=== PATIENT | female | born 1955 | race Caucasian/White ===

== ENCOUNTER 2019-06-07 17:52 | Inpatient (IN) | payer OTHER, MEDICAID ==
[~2019-06-07] VITALS: Ht 162.6 cm; Wt 51.3 kg
[~2019-06-07 17:52] MED LIST: AMIT50TA3 PO; CARB200T8 PO; CLON0.5T12 PO; CYCL10TA9 PO; DIPH-179 PO; ELMIRON PO; ELUX75TA PO; ESOM40CA PO; GABA600T PO; HYDR-4100 PO; LEVE500T53 PO; LEVO25TA7 PO; LORA1TAB PO; MECL-110 PO; METH1TAB35 PO; ONDA4TAB5 PO; PROP10TA10 PO; SOLI10TA2 PO; TEMA30CA5 PO
[2019-06-07 18:14] VITALS: BP_SYST 115
[2019-06-07] MEDS ORDERED: NACL 0.9% 1,000 ML IV ONE (18:15)
[2019-06-07 18:33] LABS: BASOPHILS % (AUTO) 0.2 % (0.0-2.0); HEMATOCRIT 39.7 % (36-48); HEMOGLOBIN 12.9 g/dL (12.0-16.0); LYMPHOCYTES # (AUTO) 0.3 K/uL (1.0-5.5); LYMPHOCYTES % (AUTO) 2.8 % (20.5-51.5); MEAN CORPUSCULAR HEMOGLOBIN 31 pg (27-31); MEAN CORPUSCULAR HGB CONC 33 % (32-36); MEAN CORPUSCULAR VOLUME 96 fL (79.0-98.0); MONOCYTES # (AUTO) 0.8 K/uL (0.0-1.0); PLATELET COUNT (AUTO) 106 K/uL (130-430); RED BLOOD CELL COUNT(AUTO) 4.16 MIL/uL (4.2-6.2); RED CELL DISTRIBUTION WIDTH 14.5 % (9.0-15.0)
[2019-06-07 18:45] LABS: CALCIUM 8.2 mg/dL (8.4-11.0); CREATININE 0.82 mg/dL (0.55-1.30)
[2019-06-07 18:51] LABS: ALBUMIN 2.5 g/dL (3.4-4.8); TOTAL BILIRUBIN 0.5 mg/dL (0.0-1.0)
[2019-06-07 18:56] LABS: INR 1.5 (0.8-1.2); PROTHROMBIN TIME 15.2 SECS (9.5-12.5)
[2019-06-07 19:11] LABS: BLOOD, URINE 3+ (NEGATIVE); GLUCOSE,URINE NEGATIVE (NEGATIVE); KETONES,URINE TRACE (NEGATIVE); LEUKOCYTE ESTERASE ,URINE NEGATIVE (NEGATIVE); PH,URINE 6.5 (5.0-8.0); PROTEIN URINE 2+ (NEGATIVE)
[2019-06-07] MEDS ORDERED: ENOXAPARIN SODIUM 30 MG/0.3 ML SYRINGE SUBCUT ONE (19:15)
[2019-06-07 19:24] LABS: BILIRUBIN,URINE NEGATIVE (NEGATIVE); CLARITY/URINE HAZY (CLEAR); COLOR,URINE AMBER (YELLOW); NITRITE, URINE NEGATIVE (NEGATIVE)
[2019-06-07 19:25] LABS: BACTERIA,URINE FEW /HPF (None Seen); MUCUS,URINE None Seen /LPF (None Seen); RBC,URINE NONE SEEN /HPF (0-3); WBC,URINE 0-3 /HPF (0-3)
[2019-06-07] MEDS ORDERED: BACL10TA PO (21:19)
[2019-06-07] MEDS ORDERED: PRIM50TA27 PO ×2 (21:22→21:23)
[2019-06-07] MEDS ORDERED: NITR-85 PO (21:25)
[2019-06-07] MEDS ORDERED: ACET1TAB25 PO (21:26)
[2019-06-07] MEDS ORDERED: LEVO750T45 PO (21:28)
[2019-06-07] MEDS ORDERED: ENOXAPARIN SODIUM 40 MG/0.4 ML SYRINGE SUBCUT ONE (22:00)
[2019-06-07] MEDS ORDERED: KCL 20 mEq in D5/0.45NS 1000mL 1,000 ML IV ONE (22:15)
[2019-06-07] MEDS: KCL 20 mEq in D5/0.45NS 1000mL 1,000 ML IV SCH (23:30)
[2019-06-07] MEDS ORDERED: AZITHROMYCIN 500 MG in NS 250 ML IV SCH (23:30)
[2019-06-07 23:40] VITALS: BP_SYST 117
[2019-06-07 23:48] VITALS: BP_SYST 101
[2019-06-07 23:52] LABS: CKMB RELATIVE INDEX 1.3 (0.0-2.9); CREATINE KINASE MB 42.1 ng/mL (0-3.6)
[2019-06-08] MEDS ORDERED: levETIRAcetam 500 MG TABLET PO SCH ×2 (01:10→09:00)
[2019-06-08] MEDS: LevALBUTEROL HCL 1.25 MG/0.5 ML *CONC.* VIAL.NEB (XOPENEX CONC.) INH SCH ×4 (01:27→23:20)
[2019-06-08] MEDS ORDERED: CYCLOBENZAPRINE HCL 10 MG TABLET (FLEXERIL) PO SCH ×2 (01:30→09:00)
[2019-06-08] MEDS ORDERED: PRIMIDONE 50 MG TABLET PO SCH ×2 (01:30→09:00)
[2019-06-08] MEDS ORDERED: BACLOFEN 10 MG TABLET PO SCH ×3 (01:30→09:00)
[2019-06-08] MEDS ORDERED: GABAPENTIN 300 MG CAPSULE PO SCH (01:30)
[2019-06-08] MEDS ORDERED: AZITHROMYCIN 500 MG/VIAL (ZITHROMAX) IV ONE (02:55)
[2019-06-08] MEDS ORDERED: cefTRIAXone 1 GM IVPB PREMIX 50 ML IV ONE (02:55)
[2019-06-08] MEDS ORDERED: KCL 20 mEq in D5/0.45NS 1000mL 1,000 ML IV ONE (02:55)
[2019-06-08] MEDS: cefTRIAXone 1 GM in D5W 50 ML IV SCH (04:09)
[2019-06-08] MEDS ORDERED: LEVOTHYROXINE SODIUM 0.025 MG TABLET PO SCH (07:00)
[2019-06-08] MEDS: GABAPENTIN 300 MG CAPSULE PO SCH ×2 (07:05→14:00)
[2019-06-08 07:07] LABS: BASOPHILS % (AUTO) 0.1 % (0.0-2.0); HEMATOCRIT 37.9 % (36-48); HEMOGLOBIN 12.2 g/dL (12.0-16.0); LYMPHOCYTES # (AUTO) 0.4 K/uL (1.0-5.5); LYMPHOCYTES % (AUTO) 3.9 % (20.5-51.5); MEAN CORPUSCULAR HEMOGLOBIN 31 pg (27-31); MEAN CORPUSCULAR HGB CONC 32 % (32-36); MEAN CORPUSCULAR VOLUME 97 fL (79.0-98.0); MONOCYTES # (AUTO) 0.9 K/uL (0.0-1.0); MONOCYTES % (AUTO) 8.7 % (1.7-9.3); NEUTROPHILS # (AUTO) 8.8 K/uL (1.8-7.7); NEUTROPHILS % (AUTO) 87.3 % (40.0-70.0); PLATELET COUNT (AUTO) 104 K/uL (130-430); RED BLOOD CELL COUNT(AUTO) 3.93 MIL/uL (4.2-6.2); RED CELL DISTRIBUTION WIDTH 14.1 % (9.0-15.0); WHITE BLOOD COUNT (AUTO) 10.1 K/uL (4.8-10.8)
[2019-06-08 07:27] LABS: CALCIUM 7.9 mg/dL (8.4-11.0); CREATININE 0.59 mg/dL (0.55-1.30); POTASSIUM 4.3 mmol/L (3.5-5.1)
[2019-06-08 07:53] VITALS: BP_SYST 110
[2019-06-08] MEDS ORDERED: clonazePAM 0.5 MG TABLET PO SCH (09:00)
[2019-06-08] MEDS: ENOXAPARIN SODIUM 40 MG/0.4 ML SYRINGE SUBCUT SCH (12:22)
[2019-06-08 12:26] VITALS: BP_SYST 115
[2019-06-08] MEDS: KCL 20 mEq in D5/0.45NS 1000mL 1,000 ML IV SCH (12:27)
[2019-06-08] MEDS ORDERED: COMMUNICATION ORDER XX ONE (14:45)
[2019-06-08] MEDS ORDERED: levETIRAcetam 500 MG in NS 100 ML IV ONE (15:30)
[2019-06-08 16:28] VITALS: BP_SYST 144
[2019-06-08] MEDS ORDERED: ACETAMINOPHEN 650 MG SUPP.RECT RC PRN (16:30)
[2019-06-08] MEDS: MORPHINE 2 MG/ML INJ. SYRINGE IVP PRN (16:40)
[2019-06-08 20:00] VITALS: BP_SYST 124
[2019-06-08] MEDS: metroNIDAZOLE 500 mg/NS 100 ML IV SCH (22:09)
[2019-06-08] MEDS: levETIRAcetam 500 MG in NS 100 ML IV SCH (22:10)
[2019-06-08 23:46] VITALS: BP_SYST 120
[2019-06-09] MEDS: cefTRIAXone 1 GM in D5W 50 ML IV SCH (00:33)
[2019-06-09] MEDS ORDERED: cefTRIAXone 1 GM VIAL ONE (00:39)
[2019-06-09] MEDS: LevALBUTEROL HCL 1.25 MG/0.5 ML *CONC.* VIAL.NEB (XOPENEX CONC.) INH SCH ×4 (00:46→19:08)
[2019-06-09 06:42] LABS: BASOPHILS % (AUTO) 0.1 % (0.0-2.0); HEMATOCRIT 35.2 % (36-48); HEMOGLOBIN 11.3 g/dL (12.0-16.0); LYMPHOCYTES # (AUTO) 0.4 K/uL (1.0-5.5); LYMPHOCYTES % (AUTO) 3.6 % (20.5-51.5); MEAN CORPUSCULAR HEMOGLOBIN 31 pg (27-31); MEAN CORPUSCULAR HGB CONC 32 % (32-36); MEAN CORPUSCULAR VOLUME 96 fL (79.0-98.0); MONOCYTES # (AUTO) 0.8 K/uL (0.0-1.0); MONOCYTES % (AUTO) 6.6 % (1.7-9.3); NEUTROPHILS # (AUTO) 10.8 K/uL (1.8-7.7); NEUTROPHILS % (AUTO) 89.7 % (40.0-70.0); PLATELET COUNT (AUTO) 90 K/uL (130-430); RED BLOOD CELL COUNT(AUTO) 3.66 MIL/uL (4.2-6.2); RED CELL DISTRIBUTION WIDTH 14.5 % (9.0-15.0)
[2019-06-09 07:11] LABS: ALBUMIN 2.1 g/dL (3.4-4.8); CALCIUM 7.6 mg/dL (8.4-11.0); CREATININE 0.46 mg/dL (0.55-1.30); POTASSIUM 4.2 mmol/L (3.5-5.1); THYROID STIMULATING HORMONE 0.85 uIu/mL (0.36-3.74); TOTAL BILIRUBIN 0.4 mg/dL (0.0-1.0)
[2019-06-09] MEDS: levETIRAcetam 500 MG in NS 100 ML IV SCH ×2 (09:01→19:59)
[2019-06-09] MEDS: KCL 20 mEq in D5/0.45NS 1000mL 1,000 ML IV SCH ×3 (09:01→13:30)
[2019-06-09 09:05] VITALS: BP_SYST 124
[2019-06-09] MEDS: metroNIDAZOLE 500 mg/NS 100 ML IV SCH ×2 (10:22→19:59)
[2019-06-09] MEDS: ENOXAPARIN SODIUM 40 MG/0.4 ML SYRINGE SUBCUT SCH (10:24)
[2019-06-09] MEDS: LEVOTHYROXINE SODIUM 0.1 MG VIAL IVP SCH (10:38)
[2019-06-09] MEDS: MORPHINE 2 MG/ML INJ. SYRINGE IVP PRN ×2 (11:53→20:00)
[2019-06-09 12:00] VITALS: BP_SYST 137
[2019-06-09 15:35] VITALS: BP_SYST 160
[2019-06-09 16:32] VITALS: BP_SYST 138
[2019-06-09 20:00] VITALS: BP_SYST 148
[2019-06-09] MEDS: ONDANSETRON HCL 4 MG/2 ML VIAL IVP PRN (22:51)
[2019-06-10 00:06] VITALS: BP_SYST 130
[2019-06-10] MEDS: cefTRIAXone 1 GM in D5W 50 ML IV SCH ×2 (00:26→23:16)
[2019-06-10] MEDS: KCL 20 mEq in D5/0.45NS 1000mL 1,000 ML IV SCH ×3 (00:41→21:59)
[2019-06-10] MEDS: LevALBUTEROL HCL 1.25 MG/0.5 ML *CONC.* VIAL.NEB (XOPENEX CONC.) INH SCH ×3 (01:00→14:06)
[2019-06-10 08:27] VITALS: BP_SYST 130
[2019-06-10] MEDS: levETIRAcetam 500 MG in NS 100 ML IV SCH ×2 (10:56→21:59)
[2019-06-10] MEDS: LEVOTHYROXINE SODIUM 0.1 MG VIAL IVP SCH (10:57)
[2019-06-10] MEDS: metroNIDAZOLE 500 mg/NS 100 ML IV SCH ×2 (10:57→22:00)
[2019-06-10] MEDS: ENOXAPARIN SODIUM 40 MG/0.4 ML SYRINGE SUBCUT SCH (10:58)
[2019-06-10] MEDS ORDERED: BARIUM SULFATE 135 ML SUSP.RECON (E-Z-HD) PO ONE (11:05)
[2019-06-10 12:00] VITALS: BP_SYST 111
[2019-06-10] MEDS ORDERED: FLUCONAZOLE 200 mg/ NS 100 ML IV ONE (12:00)
[2019-06-10] MEDS: MORPHINE 2 MG/ML INJ. SYRINGE IVP PRN (14:46)
[2019-06-10 16:22] VITALS: BP_SYST 135
[2019-06-10 20:00] VITALS: BP_SYST 123
[2019-06-10] MEDS: LORazepam 2 MG/ML VIAL IVP PRN (23:22)
[2019-06-11] VITALS (14 sets, daily range): BP systolic 134–161
[2019-06-11] MEDS: KCL 20 mEq in D5/0.45NS 1000mL 1,000 ML IV SCH ×2 (05:14→17:51)
[2019-06-11 06:16] LABS: BASOPHILS % (AUTO) 0.2 % (0.0-2.0); HEMATOCRIT 34.4 % (36-48); LYMPHOCYTES # (AUTO) 0.4 K/uL (1.0-5.5); LYMPHOCYTES % (AUTO) 2.7 % (20.5-51.5); MEAN CORPUSCULAR HEMOGLOBIN 31 pg (27-31); MEAN CORPUSCULAR HGB CONC 32 % (32-36); MEAN CORPUSCULAR VOLUME 96 fL (79.0-98.0); MONOCYTES # (AUTO) 0.9 K/uL (0.0-1.0); MONOCYTES % (AUTO) 5.1 % (1.7-9.3); NEUTROPHILS # (AUTO) 15.3 K/uL (1.8-7.7); RED BLOOD CELL COUNT(AUTO) 3.58 MIL/uL (4.2-6.2); RED CELL DISTRIBUTION WIDTH 14.6 % (9.0-15.0); WHITE BLOOD COUNT (AUTO) 16.7 K/uL (4.8-10.8)
[2019-06-11 06:29] LABS: CALCIUM 7.9 mg/dL (8.4-11.0); CHLORIDE 112 mmol/L (98-107); CREATININE 0.45 mg/dL (0.55-1.30); GLUCOSE 141 mg/dL (70-99); POTASSIUM 3.9 mmol/L (3.5-5.1); SODIUM SERUM 144 mmol/L (136-145); UREA NITROGEN, BLOOD 18 mg/dL (8-21)
[2019-06-11 06:41] LABS: GFR AFRICAN AMERICAN 180 mL/min (>90)
[2019-06-11 06:43] LABS: ANION GAP < 3 (5-15)
[2019-06-11] MEDS: LevALBUTEROL HCL 1.25 MG/0.5 ML *CONC.* VIAL.NEB (XOPENEX CONC.) INH SCH ×3 (07:00→19:35)
[2019-06-11 07:16] LABS: PLATELET COUNT (AUTO) 85 K/uL (130-430)
[2019-06-11] MEDS: LEVOTHYROXINE SODIUM 0.1 MG VIAL IVP SCH (09:07)
[2019-06-11] MEDS: levETIRAcetam 500 MG in NS 100 ML IV SCH ×2 (09:07→20:05)
[2019-06-11] MEDS: metroNIDAZOLE 500 mg/NS 100 ML IV SCH ×2 (09:10→22:00)
[2019-06-11] MEDS: ENOXAPARIN SODIUM 40 MG/0.4 ML SYRINGE SUBCUT SCH (09:10)
[2019-06-11] MEDS: LevALBUTEROL HCL 1.25 MG/0.5 ML *CONC.* VIAL.NEB (XOPENEX CONC.) INH PRN (11:42)
[2019-06-11] MEDS ORDERED: PANTOPRAZOLE SODIUM 40 MG/VIAL (PROTONIX) IVP ONE (15:45)
[2019-06-11] MEDS: MORPHINE 2 MG/ML INJ. SYRINGE IVP PRN (15:55)
[2019-06-11] MEDS: cefTRIAXone 1 GM in D5W 50 ML IV SCH (23:42)
[2019-06-12] VITALS (29 sets, daily range): BP systolic 95–179
[2019-06-12] MEDS: LevALBUTEROL HCL 1.25 MG/0.5 ML *CONC.* VIAL.NEB (XOPENEX CONC.) INH SCH ×4 (00:49→19:25)
[2019-06-12] MEDS: KCL 20 mEq in D5/0.45NS 1000mL 1,000 ML IV SCH ×3 (01:13→23:56)
[2019-06-12 06:47] LABS: BASOPHILS % (AUTO) 0.1 % (0.0-2.0); HEMATOCRIT 38.1 % (36-48); LYMPHOCYTES # (AUTO) 0.5 K/uL (1.0-5.5); LYMPHOCYTES % (AUTO) 2.6 % (20.5-51.5); MEAN CORPUSCULAR HEMOGLOBIN 30 pg (27-31); MEAN CORPUSCULAR HGB CONC 31 % (32-36); MEAN CORPUSCULAR VOLUME 97 fL (79.0-98.0); MONOCYTES # (AUTO) 0.9 K/uL (0.0-1.0); MONOCYTES % (AUTO) 5.3 % (1.7-9.3); NEUTROPHILS # (AUTO) 16.2 K/uL (1.8-7.7); PLATELET COUNT (AUTO) 106 K/uL (130-430); RED BLOOD CELL COUNT(AUTO) 3.93 MIL/uL (4.2-6.2); RED CELL DISTRIBUTION WIDTH 14.7 % (9.0-15.0); WHITE BLOOD COUNT (AUTO) 17.6 K/uL (4.8-10.8)
[2019-06-12] MEDS ORDERED: fentaNYL CITRATE/PF 100 MCG/2 ML AMP ONE (08:17)
[2019-06-12] MEDS: metroNIDAZOLE 500 mg/NS 100 ML IV SCH (09:04)
[2019-06-12] MEDS: PANTOPRAZOLE SODIUM 40 MG/VIAL (PROTONIX) IVP SCH (09:05)
[2019-06-12] MEDS: levETIRAcetam 500 MG in NS 100 ML IV SCH ×2 (09:05→20:59)
[2019-06-12] MEDS: LEVOTHYROXINE SODIUM 0.1 MG VIAL IVP SCH (09:06)
[2019-06-12] MEDS: MIDAZOLAM HCL 5 MG/5 ML VIAL ONE ×2 (09:12→09:15)
[2019-06-12] MEDS: ENOXAPARIN SODIUM 40 MG/0.4 ML SYRINGE SUBCUT SCH (09:52)
[2019-06-12] MEDS: LORazepam 2 MG/ML VIAL IVP PRN ×3 (10:07→15:04)
[2019-06-12] MEDS ORDERED: MIDAZOLAM HCL 5 MG/5 ML VIAL ONE (12:16)
[2019-06-12] MEDS: MORPHINE 2 MG/ML INJ. SYRINGE IVP PRN ×3 (12:36→21:10)
[2019-06-12] MEDS: PROPOFOL DRIP 100 ML IV PRN (12:50)
[2019-06-12] MEDS: PIPERACILLIN/TAZO 4.5GM/DEX-IS 100 ML IV SCH ×2 (13:02→21:54)
[2019-06-12] MEDS ORDERED: ETOMIDATE 20 MG/ 10 ML VIAL (AMIDATE) IVP ONE (15:03)
[2019-06-12] MEDS ORDERED: *TPN PER PHARMACY XX PRN (20:45)
[2019-06-13] VITALS (33 sets, daily range): BP systolic 80–119
[2019-06-13] MEDS: LevALBUTEROL HCL 1.25 MG/0.5 ML *CONC.* VIAL.NEB (XOPENEX CONC.) INH SCH ×4 (01:40→20:17)
[2019-06-13] MEDS: PIPERACILLIN/TAZO 4.5GM/DEX-IS 100 ML IV SCH ×3 (05:18→22:06)
[2019-06-13] MEDS: PROPOFOL DRIP 100 ML IV PRN ×2 (05:20→15:16)
[2019-06-13 06:56] LABS: ALANINE AMINOTRANSFERASE 20 U/L (12-78); ALBUMIN 1.7 g/dL (3.4-4.8); ASPARTATE AMINOTRANSFERASE 21 U/L (10-37); CALCIUM 7.9 mg/dL (8.4-11.0); CHLORIDE 109 mmol/L (98-107); CREATININE 0.46 mg/dL (0.55-1.30); GLUCOSE 139 mg/dL (70-99); POTASSIUM 3.6 mmol/L (3.5-5.1); SODIUM SERUM 141 mmol/L (136-145); TOTAL BILIRUBIN 0.6 mg/dL (0.0-1.0); UREA NITROGEN, BLOOD 16 mg/dL (8-21)
[2019-06-13 07:00] LABS: BASOPHILS % (AUTO) 0.3 % (0.0-2.0); EOSINOPHILS # (AUTO) 0.1 K/uL (0.0-0.4); EOSINOPHILS % (AUTO) 0.5 % (0.0-4.0); HEMATOCRIT 30.6 % (36-48); HEMOGLOBIN 9.8 g/dL (12.0-16.0); LYMPHOCYTES # (AUTO) 0.5 K/uL (1.0-5.5); LYMPHOCYTES % (AUTO) 4.1 % (20.5-51.5); MEAN CORPUSCULAR HEMOGLOBIN 31 pg (27-31); MEAN CORPUSCULAR HGB CONC 32 % (32-36); MEAN CORPUSCULAR VOLUME 97 fL (79.0-98.0); MONOCYTES # (AUTO) 0.7 K/uL (0.0-1.0); MONOCYTES % (AUTO) 5.5 % (1.7-9.3); NEUTROPHILS # (AUTO) 11.2 K/uL (1.8-7.7); NEUTROPHILS % (AUTO) 89.6 % (40.0-70.0); PLATELET COUNT (AUTO) 77 K/uL (130-430); RED BLOOD CELL COUNT(AUTO) 3.17 MIL/uL (4.2-6.2); RED CELL DISTRIBUTION WIDTH 14.6 % (9.0-15.0); WHITE BLOOD COUNT (AUTO) 12.5 K/uL (4.8-10.8)
[2019-06-13 07:32] LABS: GFR AFRICAN AMERICAN 175 mL/min (>90)
[2019-06-13 07:34] LABS: ANION GAP < 3 (5-15)
[2019-06-13] MEDS: LEVOTHYROXINE SODIUM 0.1 MG VIAL IVP SCH (08:52)
[2019-06-13] MEDS: PANTOPRAZOLE SODIUM 40 MG/VIAL (PROTONIX) IVP SCH (08:52)
[2019-06-13] MEDS: levETIRAcetam 500 MG in NS 100 ML IV SCH ×2 (08:52→20:45)
[2019-06-13] MEDS: ENOXAPARIN SODIUM 40 MG/0.4 ML SYRINGE SUBCUT SCH (08:53)
[2019-06-13] MEDS: KCL 20 mEq in D5/0.45NS 1000mL 1,000 ML IV SCH ×2 (09:16→20:44)
[2019-06-13 10:56] LABS: PHOSPHORUS 1.6 mg/dL (2.7-4.5)
[2019-06-13] MEDS: LORazepam 2 MG/ML VIAL IVP PRN (13:32)
[2019-06-13] MEDS: MORPHINE 2 MG/ML INJ. SYRINGE IVP PRN ×3 (13:34→23:38)
[2019-06-13] MEDS ORDERED: MAGNESIUM SULFATE IV SCH ×7 (21:00)
[2019-06-13] MEDS ORDERED: TPN CENTRAL IV SCH ×7 (21:00)
[2019-06-13] MEDS ORDERED: [UNRECOGNIZED DRUG - OTHER] IV SCH ×7 (21:00)
[2019-06-13] MEDS ORDERED: NA PHOS IV SCH ×7 (21:00)
[2019-06-13] MEDS ORDERED: K PHOS IV SCH ×7 (21:00)
[2019-06-14] VITALS (33 sets, daily range): BP systolic 91–112
[2019-06-14] MEDS ORDERED: D5W 1,000 ML IV PRN ×2 (01:00→04:40)
[2019-06-14] MEDS: INSULIN REGULAR, HUMAN 100 UNITS/ML, 10 ML VIAL (humuLIN R) SUBCUT PRN ×3 (01:00→11:54)
[2019-06-14] MEDS ORDERED: DEXTROSE 50% JECT 50 ML DISP.SYRIN IVP PRN ×2 (01:00→04:45)
[2019-06-14] MEDS ORDERED: GLUCOSE 15 GM GEL (in 37.5 GM TUBE) PO PRN ×2 (01:00→04:45)
[2019-06-14] MEDS: PROPOFOL DRIP 100 ML IV PRN ×3 (01:23→17:25)
[2019-06-14] MEDS: LevALBUTEROL HCL 1.25 MG/0.5 ML *CONC.* VIAL.NEB (XOPENEX CONC.) INH SCH ×4 (01:35→19:54)
[2019-06-14] MEDS: PIPERACILLIN/TAZO 4.5GM/DEX-IS 100 ML IV SCH ×3 (05:53→21:30)
[2019-06-14 06:36] LABS: ALBUMIN 1.7 g/dL (3.4-4.8); CALCIUM 7.6 mg/dL (8.4-11.0); CREATININE 0.33 mg/dL (0.55-1.30); PHOSPHORUS 3.1 mg/dL (2.7-4.5); POTASSIUM 3.8 mmol/L (3.5-5.1); TOTAL BILIRUBIN 0.5 mg/dL (0.0-1.0)
[2019-06-14] MEDS: PANTOPRAZOLE SODIUM 40 MG/VIAL (PROTONIX) IVP SCH (08:17)
[2019-06-14] MEDS: LEVOTHYROXINE SODIUM 0.1 MG VIAL IVP SCH (08:17)
[2019-06-14] MEDS: levETIRAcetam 500 MG in NS 100 ML IV SCH ×2 (08:18→20:52)
[2019-06-14] MEDS: KCL 20 mEq in D5/0.45NS 1000mL 1,000 ML IV SCH ×2 (08:18→17:24)
[2019-06-14] MEDS: ENOXAPARIN SODIUM 40 MG/0.4 ML SYRINGE SUBCUT SCH (08:20)
[2019-06-14] MEDS ORDERED: ETOMIDATE 20 MG/ 10 ML VIAL (AMIDATE) IVP ONE (08:43)
[2019-06-14] MEDS: MORPHINE 2 MG/ML INJ. SYRINGE IVP PRN ×2 (11:55→21:30)
[2019-06-14 17:18] LABS: BASOPHILS % (AUTO) 0.1 % (0.0-2.0); EOSINOPHILS # (AUTO) 0.3 K/uL (0.0-0.4); EOSINOPHILS % (AUTO) 3.2 % (0.0-4.0); HEMATOCRIT 31.4 % (36-48); HEMOGLOBIN 10.1 g/dL (12.0-16.0); LYMPHOCYTES # (AUTO) 0.4 K/uL (1.0-5.5); LYMPHOCYTES % (AUTO) 3.9 % (20.5-51.5); MEAN CORPUSCULAR HEMOGLOBIN 31 pg (27-31); MEAN CORPUSCULAR HGB CONC 32 % (32-36); MEAN CORPUSCULAR VOLUME 96 fL (79.0-98.0); MONOCYTES # (AUTO) 0.4 K/uL (0.0-1.0); MONOCYTES % (AUTO) 3.8 % (1.7-9.3); NEUTROPHILS # (AUTO) 9.6 K/uL (1.8-7.7); RED BLOOD CELL COUNT(AUTO) 3.26 MIL/uL (4.2-6.2); RED CELL DISTRIBUTION WIDTH 14.3 % (9.0-15.0); WHITE BLOOD COUNT (AUTO) 10.8 K/uL (4.8-10.8)
[2019-06-14 17:42] LABS: PLATELET COUNT (AUTO) 88 K/uL (130-430)
[2019-06-14] MEDS ORDERED: FUROSEMIDE 20 MG/2 ML VIAL IVP ONE (20:30)
[2019-06-14] MEDS: 0.45% NACL 1,000 ML IV SCH (20:49)
[2019-06-14] MEDS: ALBUMIN HUMAN 25% 50 ML IV SCH (20:52)
[2019-06-14] MEDS ORDERED: TPN CENTRAL IV SCH ×6 (21:00)
[2019-06-14] MEDS ORDERED: MAGNESIUM SULFATE IV SCH ×6 (21:00)
[2019-06-14] MEDS ORDERED: [UNRECOGNIZED DRUG - OTHER] IV SCH ×6 (21:00)
[2019-06-14] MEDS ORDERED: K PHOS IV SCH ×6 (21:00)
[2019-06-14] MEDS ORDERED: MVI IV SCH ×6 (21:00)
[2019-06-15] VITALS (32 sets, daily range): BP systolic 84–122
[2019-06-15] MEDS: MORPHINE 2 MG/ML INJ. SYRINGE IVP PRN ×3 (00:02→23:32)
[2019-06-15] MEDS: LevALBUTEROL HCL 1.25 MG/0.5 ML *CONC.* VIAL.NEB (XOPENEX CONC.) INH SCH ×4 (01:07→19:00)
[2019-06-15] MEDS: ALBUMIN HUMAN 25% 50 ML IV SCH ×2 (03:09→08:17)
[2019-06-15] MEDS: PROPOFOL DRIP 100 ML IV PRN ×3 (03:11→18:40)
[2019-06-15] MEDS: PIPERACILLIN/TAZO 4.5GM/DEX-IS 100 ML IV SCH ×3 (05:39→22:20)
[2019-06-15 07:16] LABS: BASOPHILS % (AUTO) 0.4 % (0.0-2.0); EOSINOPHILS # (AUTO) 0.4 K/uL (0.0-0.4); EOSINOPHILS % (AUTO) 3.7 % (0.0-4.0); HEMATOCRIT 28.8 % (36-48); HEMOGLOBIN 9.5 g/dL (12.0-16.0); LYMPHOCYTES # (AUTO) 0.5 K/uL (1.0-5.5); LYMPHOCYTES % (AUTO) 4.5 % (20.5-51.5); MEAN CORPUSCULAR HEMOGLOBIN 31 pg (27-31); MEAN CORPUSCULAR HGB CONC 33 % (32-36); MEAN CORPUSCULAR VOLUME 96 fL (79.0-98.0); MONOCYTES # (AUTO) 0.4 K/uL (0.0-1.0); MONOCYTES % (AUTO) 4.3 % (1.7-9.3); NEUTROPHILS # (AUTO) 9.1 K/uL (1.8-7.7); NEUTROPHILS % (AUTO) 87.1 % (40.0-70.0); PLATELET COUNT (AUTO) 92 K/uL (130-430); RED BLOOD CELL COUNT(AUTO) 3.01 MIL/uL (4.2-6.2); RED CELL DISTRIBUTION WIDTH 14.2 % (9.0-15.0); WHITE BLOOD COUNT (AUTO) 10.4 K/uL (4.8-10.8)
[2019-06-15 07:31] LABS: ALBUMIN 1.8 g/dL (3.4-4.8); CALCIUM 7.3 mg/dL (8.4-11.0); CREATININE 0.26 mg/dL (0.55-1.30); PHOSPHORUS 3.5 mg/dL (2.7-4.5); POTASSIUM 3.1 mmol/L (3.5-5.1); TOTAL BILIRUBIN 0.5 mg/dL (0.0-1.0)
[2019-06-15] MEDS ORDERED: KCL 40 mEq in 100 mL (PREMIX) 100 ML IV ONE (08:15)
[2019-06-15] MEDS: PANTOPRAZOLE SODIUM 40 MG/VIAL (PROTONIX) IVP SCH (08:16)
[2019-06-15] MEDS: ENOXAPARIN SODIUM 40 MG/0.4 ML SYRINGE SUBCUT SCH (08:16)
[2019-06-15] MEDS: LEVOTHYROXINE SODIUM 0.1 MG VIAL IVP SCH (08:17)
[2019-06-15] MEDS: levETIRAcetam 500 MG in NS 100 ML IV SCH ×2 (08:17→20:23)
[2019-06-15] MEDS: 0.45% NACL 1,000 ML IV SCH ×2 (14:11→23:33)
[2019-06-15] MEDS ORDERED: CEFAZOLIN 1 GM IVPB PREMIX 50 ML IV ONE (17:00)
[2019-06-15] MEDS ORDERED: MIDAZOLAM HCL 5 MG/5 ML VIAL ONE (17:20)
[2019-06-15] MEDS ORDERED: SIMETHICONE 40 MG/0.6 ML ML ONE (17:20)
[2019-06-15] MEDS ORDERED: fentaNYL CITRATE/PF 100 MCG/2 ML AMP ONE (17:20)
[2019-06-15] MEDS ORDERED: MAGNESIUM SULFATE IV SCH ×8 (21:00)
[2019-06-15] MEDS ORDERED: TPN CENTRAL IV SCH ×8 (21:00)
[2019-06-15] MEDS ORDERED: MVI IV SCH ×8 (21:00)
[2019-06-15] MEDS ORDERED: K PHOS IV SCH ×8 (21:00)
[2019-06-15] MEDS ORDERED: [UNRECOGNIZED DRUG - OTHER] IV SCH ×8 (21:00)
[2019-06-16] VITALS (31 sets, daily range): BP systolic 90–131
[2019-06-16] MEDS: MORPHINE 2 MG/ML INJ. SYRINGE IVP PRN ×3 (02:20→22:20)
[2019-06-16] MEDS: PROPOFOL DRIP 100 ML IV PRN ×3 (02:21→18:02)
[2019-06-16] MEDS: PIPERACILLIN/TAZO 4.5GM/DEX-IS 100 ML IV SCH ×3 (05:35→22:39)
[2019-06-16] MEDS: INSULIN REGULAR, HUMAN 100 UNITS/ML, 10 ML VIAL (humuLIN R) SUBCUT PRN (05:40)
[2019-06-16 06:44] LABS: ALANINE AMINOTRANSFERASE 13 U/L (12-78); ASPARTATE AMINOTRANSFERASE 23 U/L (10-37); CALCIUM 7.8 mg/dL (8.4-11.0); CHLORIDE 99 mmol/L (98-107); CREATININE 0.25 mg/dL (0.55-1.30); GLUCOSE 153 mg/dL (70-99); PHOSPHORUS 3.3 mg/dL (2.7-4.5); POTASSIUM 3.9 mmol/L (3.5-5.1); SODIUM SERUM 133 mmol/L (136-145); TOTAL BILIRUBIN 0.5 mg/dL (0.0-1.0); UREA NITROGEN, BLOOD 11 mg/dL (8-21)
[2019-06-16 07:06] LABS: GFR AFRICAN AMERICAN 354 mL/min (>90)
[2019-06-16 07:07] LABS: ANION GAP < 3 (5-15)
[2019-06-16] MEDS: LevALBUTEROL HCL 1.25 MG/0.5 ML *CONC.* VIAL.NEB (XOPENEX CONC.) INH SCH ×3 (07:50→19:40)
[2019-06-16] MEDS: levETIRAcetam 500 MG in NS 100 ML IV SCH ×2 (08:08→21:16)
[2019-06-16] MEDS: PANTOPRAZOLE SODIUM 40 MG/VIAL (PROTONIX) IVP SCH (08:09)
[2019-06-16] MEDS: ENOXAPARIN SODIUM 40 MG/0.4 ML SYRINGE SUBCUT SCH (08:09)
[2019-06-16] MEDS: LEVOTHYROXINE SODIUM 0.1 MG VIAL IVP SCH (08:09)
[2019-06-16 09:58] LABS: BASOPHILS % (AUTO) 0.3 % (0.0-2.0); EOSINOPHILS # (AUTO) 0.3 K/uL (0.0-0.4); HEMATOCRIT 33.9 % (36-48); HEMOGLOBIN 10.9 g/dL (12.0-16.0); LYMPHOCYTES # (AUTO) 0.7 K/uL (1.0-5.5); LYMPHOCYTES % (AUTO) 6.6 % (20.5-51.5); MEAN CORPUSCULAR HEMOGLOBIN 31 pg (27-31); MEAN CORPUSCULAR HGB CONC 32 % (32-36); MEAN CORPUSCULAR VOLUME 96 fL (79.0-98.0); MONOCYTES # (AUTO) 0.7 K/uL (0.0-1.0); MONOCYTES % (AUTO) 6.8 % (1.7-9.3); NEUTROPHILS # (AUTO) 8.8 K/uL (1.8-7.7); NEUTROPHILS % (AUTO) 83.3 % (40.0-70.0); PLATELET COUNT (AUTO) 105 K/uL (130-430); RED BLOOD CELL COUNT(AUTO) 3.53 MIL/uL (4.2-6.2); RED CELL DISTRIBUTION WIDTH 14.3 % (9.0-15.0); WHITE BLOOD COUNT (AUTO) 10.5 K/uL (4.8-10.8)
[2019-06-16] MEDS: 0.45% NACL 1,000 ML IV SCH (18:42)
[2019-06-16] MEDS ORDERED: K PHOS IV SCH ×9 (21:00)
[2019-06-16] MEDS ORDERED: TPN CENTRAL IV SCH ×9 (21:00)
[2019-06-16] MEDS ORDERED: MAGNESIUM SULFATE IV SCH ×9 (21:00)
[2019-06-16] MEDS ORDERED: MVI IV SCH ×9 (21:00)
[2019-06-16] MEDS ORDERED: [UNRECOGNIZED DRUG - OTHER] IV SCH ×9 (21:00)
[2019-06-16] MEDS: METOCLOPRAMIDE HCL 10 MG/2 ML VIAL IVP SCH (21:16)
[2019-06-17] VITALS (27 sets, daily range): BP systolic 80–127
[2019-06-17] MEDS: PROPOFOL DRIP 100 ML IV PRN ×3 (00:26→14:31)
[2019-06-17] MEDS: LevALBUTEROL HCL 1.25 MG/0.5 ML *CONC.* VIAL.NEB (XOPENEX CONC.) INH SCH ×2 (01:20→19:39)
[2019-06-17] MEDS: PIPERACILLIN/TAZO 4.5GM/DEX-IS 100 ML IV SCH ×3 (05:08→22:08)
[2019-06-17] MEDS: METOCLOPRAMIDE HCL 10 MG/2 ML VIAL IVP SCH ×3 (05:08→22:08)
[2019-06-17] MEDS: MORPHINE 2 MG/ML INJ. SYRINGE IVP PRN ×4 (05:12→22:09)
[2019-06-17] MEDS: INSULIN REGULAR, HUMAN 100 UNITS/ML, 10 ML VIAL (humuLIN R) SUBCUT PRN ×2 (05:15→23:31)
[2019-06-17 06:27] LABS: ALANINE AMINOTRANSFERASE 12 U/L (12-78); ALBUMIN 1.6 g/dL (3.4-4.8); ASPARTATE AMINOTRANSFERASE 35 U/L (10-37); CALCIUM 7.4 mg/dL (8.4-11.0); CHLORIDE 100 mmol/L (98-107); CREATININE 0.31 mg/dL (0.55-1.30); GLUCOSE 174 mg/dL (70-99); PHOSPHORUS 2.6 mg/dL (2.7-4.5); POTASSIUM 3.7 mmol/L (3.5-5.1); SODIUM SERUM 135 mmol/L (136-145); TOTAL BILIRUBIN 0.3 mg/dL (0.0-1.0); UREA NITROGEN, BLOOD 12 mg/dL (8-21)
[2019-06-17 06:42] LABS: ANION GAP < 3 (5-15); GFR AFRICAN AMERICAN 276 mL/min (>90)
[2019-06-17 07:28] LABS: TRIGLYCERIDES 48 mg/dL (30-150)
[2019-06-17] MEDS: PANTOPRAZOLE SODIUM 40 MG/VIAL (PROTONIX) IVP SCH (08:00)
[2019-06-17] MEDS: LEVOTHYROXINE SODIUM 0.1 MG VIAL IVP SCH (08:00)
[2019-06-17] MEDS: levETIRAcetam 500 MG in NS 100 ML IV SCH ×2 (08:00→20:07)
[2019-06-17] MEDS: ENOXAPARIN SODIUM 40 MG/0.4 ML SYRINGE SUBCUT SCH (08:03)
[2019-06-17] MEDS: LORazepam 2 MG/ML VIAL IVP PRN ×3 (11:51→23:27)
[2019-06-17] MEDS: FLUCONAZOLE 100 mg/ NS 50 ML IV SCH (13:12)
[2019-06-18] VITALS (27 sets, daily range): BP systolic 101–147
[2019-06-18] MEDS: LevALBUTEROL HCL 1.25 MG/0.5 ML *CONC.* VIAL.NEB (XOPENEX CONC.) INH SCH ×2 (00:45→19:21)
[2019-06-18] MEDS: 0.45% NACL 1,000 ML IV SCH ×2 (01:30→18:24)
[2019-06-18] MEDS: PIPERACILLIN/TAZO 4.5GM/DEX-IS 100 ML IV SCH ×3 (05:12→21:39)
[2019-06-18] MEDS: METOCLOPRAMIDE HCL 10 MG/2 ML VIAL IVP SCH ×3 (05:13→21:39)
[2019-06-18 05:56] LABS: BASOPHILS # (AUTO) 0.1 K/uL (0.0-0.2); BASOPHILS % (AUTO) 0.6 % (0.0-2.0); EOSINOPHILS # (AUTO) 0.2 K/uL (0.0-0.4); EOSINOPHILS % (AUTO) 2.7 % (0.0-4.0); HEMATOCRIT 29.4 % (36-48); HEMOGLOBIN 9.5 g/dL (12.0-16.0); LYMPHOCYTES # (AUTO) 0.6 K/uL (1.0-5.5); MEAN CORPUSCULAR HEMOGLOBIN 31 pg (27-31); MEAN CORPUSCULAR HGB CONC 32 % (32-36); MEAN CORPUSCULAR VOLUME 96 fL (79.0-98.0); MONOCYTES # (AUTO) 0.7 K/uL (0.0-1.0); MONOCYTES % (AUTO) 8.4 % (1.7-9.3); NEUTROPHILS % (AUTO) 81.3 % (40.0-70.0); PLATELET COUNT (AUTO) 125 K/uL (130-430); RED BLOOD CELL COUNT(AUTO) 3.06 MIL/uL (4.2-6.2); RED CELL DISTRIBUTION WIDTH 14.1 % (9.0-15.0); WHITE BLOOD COUNT (AUTO) 8.6 K/uL (4.8-10.8)
[2019-06-18 06:14] LABS: ALANINE AMINOTRANSFERASE 14 U/L (12-78); ALBUMIN 1.6 g/dL (3.4-4.8); ASPARTATE AMINOTRANSFERASE 22 U/L (10-37); CALCIUM 7.8 mg/dL (8.4-11.0); CHLORIDE 102 mmol/L (98-107); CREATININE 0.41 mg/dL (0.55-1.30); GLUCOSE 135 mg/dL (70-99); POTASSIUM 4.2 mmol/L (3.5-5.1); SODIUM SERUM 138 mmol/L (136-145); TOTAL BILIRUBIN 0.3 mg/dL (0.0-1.0); UREA NITROGEN, BLOOD 13 mg/dL (8-21)
[2019-06-18 06:58] LABS: GFR AFRICAN AMERICAN 200 mL/min (>90)
[2019-06-18 06:59] LABS: ANION GAP < 3 (5-15)
[2019-06-18] MEDS: ENOXAPARIN SODIUM 40 MG/0.4 ML SYRINGE SUBCUT SCH (08:07)
[2019-06-18] MEDS: PANTOPRAZOLE SODIUM 40 MG/VIAL (PROTONIX) IVP SCH (08:07)
[2019-06-18] MEDS: levETIRAcetam 500 MG in NS 100 ML IV SCH ×2 (08:08→20:42)
[2019-06-18] MEDS: LEVOTHYROXINE SODIUM 0.1 MG VIAL IVP SCH (08:08)
[2019-06-18] MEDS: LORazepam 2 MG/ML VIAL IVP PRN ×3 (08:08→21:42)
[2019-06-18] MEDS ORDERED: FUROSEMIDE 20 MG/2 ML VIAL IVP ONE (10:30)
[2019-06-18] MEDS: FLUCONAZOLE 100 mg/ NS 50 ML IV SCH (11:33)
[2019-06-18] MEDS: MORPHINE 2 MG/ML INJ. SYRINGE IVP PRN ×4 (11:34→20:43)
[2019-06-19] VITALS (31 sets, daily range): BP systolic 104–159
[2019-06-19] MEDS: MORPHINE 2 MG/ML INJ. SYRINGE IVP PRN ×5 (00:06→21:05)
[2019-06-19] MEDS: LevALBUTEROL HCL 1.25 MG/0.5 ML *CONC.* VIAL.NEB (XOPENEX CONC.) INH SCH ×4 (00:53→19:36)
[2019-06-19] MEDS: PIPERACILLIN/TAZO 4.5GM/DEX-IS 100 ML IV SCH ×3 (05:27→21:06)
[2019-06-19] MEDS: METOCLOPRAMIDE HCL 10 MG/2 ML VIAL IVP SCH ×3 (05:28→21:05)
[2019-06-19] MEDS: INSULIN REGULAR, HUMAN 100 UNITS/ML, 10 ML VIAL (humuLIN R) SUBCUT PRN (05:31)
[2019-06-19 06:03] LABS: BASOPHILS # (AUTO) 0.1 K/uL (0.0-0.2); BASOPHILS % (AUTO) 0.8 % (0.0-2.0); EOSINOPHILS # (AUTO) 0.2 K/uL (0.0-0.4); EOSINOPHILS % (AUTO) 2.1 % (0.0-4.0); HEMATOCRIT 28.4 % (36-48); HEMOGLOBIN 9.1 g/dL (12.0-16.0); LYMPHOCYTES # (AUTO) 0.7 K/uL (1.0-5.5); LYMPHOCYTES % (AUTO) 8.8 % (20.5-51.5); MEAN CORPUSCULAR HEMOGLOBIN 31 pg (27-31); MEAN CORPUSCULAR HGB CONC 32 % (32-36); MEAN CORPUSCULAR VOLUME 96 fL (79.0-98.0); MONOCYTES # (AUTO) 0.7 K/uL (0.0-1.0); MONOCYTES % (AUTO) 8.4 % (1.7-9.3); NEUTROPHILS # (AUTO) 6.5 K/uL (1.8-7.7); NEUTROPHILS % (AUTO) 79.9 % (40.0-70.0); PLATELET COUNT (AUTO) 123 K/uL (130-430); RED BLOOD CELL COUNT(AUTO) 2.95 MIL/uL (4.2-6.2); RED CELL DISTRIBUTION WIDTH 14.3 % (9.0-15.0); WHITE BLOOD COUNT (AUTO) 8.1 K/uL (4.8-10.8)
[2019-06-19 06:18] LABS: ALANINE AMINOTRANSFERASE 16 U/L (12-78); ALBUMIN 1.7 g/dL (3.4-4.8); ASPARTATE AMINOTRANSFERASE 19 U/L (10-37); CALCIUM 7.5 mg/dL (8.4-11.0); CHLORIDE 101 mmol/L (98-107); CREATININE 0.32 mg/dL (0.55-1.30); GLUCOSE 144 mg/dL (70-99); SODIUM SERUM 140 mmol/L (136-145); TOTAL BILIRUBIN 0.2 mg/dL (0.0-1.0); UREA NITROGEN, BLOOD 12 mg/dL (8-21)
[2019-06-19 07:31] LABS: GFR AFRICAN AMERICAN 267 mL/min (>90)
[2019-06-19 07:32] LABS: ANION GAP < 3 (5-15)
[2019-06-19] MEDS: PANTOPRAZOLE SODIUM 40 MG/VIAL (PROTONIX) IVP SCH (08:21)
[2019-06-19] MEDS: levETIRAcetam 500 MG in NS 100 ML IV SCH ×2 (08:21→21:09)
[2019-06-19] MEDS: LEVOTHYROXINE SODIUM 0.1 MG VIAL IVP SCH (08:22)
[2019-06-19] MEDS: ENOXAPARIN SODIUM 40 MG/0.4 ML SYRINGE SUBCUT SCH (08:33)
[2019-06-19] MEDS: FLUCONAZOLE 100 mg/ NS 50 ML IV SCH (12:13)
[2019-06-19] MEDS: LORazepam 2 MG/ML VIAL IVP PRN ×2 (16:59→22:58)
[2019-06-19] MEDS ORDERED: LevETIRAcetam 500 MG/5 ML UDC ORAL LIQUID GT SCH (21:00)
[2019-06-20] VITALS (32 sets, daily range): BP systolic 106–158
[2019-06-20] MEDS: LevALBUTEROL HCL 1.25 MG/0.5 ML *CONC.* VIAL.NEB (XOPENEX CONC.) INH SCH ×4 (01:26→21:07)
[2019-06-20] MEDS: 0.45% NACL 1,000 ML IV SCH (01:58)
[2019-06-20] MEDS: MORPHINE 2 MG/ML INJ. SYRINGE IVP PRN ×3 (01:58→08:08)
[2019-06-20] MEDS: METOCLOPRAMIDE HCL 10 MG/2 ML VIAL IVP SCH ×3 (05:21→22:05)
[2019-06-20] MEDS: PIPERACILLIN/TAZO 4.5GM/DEX-IS 100 ML IV SCH ×3 (05:22→22:05)
[2019-06-20 05:27] LABS: BASOPHILS % (AUTO) 0.5 % (0.0-2.0); EOSINOPHILS # (AUTO) 0.1 K/uL (0.0-0.4); EOSINOPHILS % (AUTO) 1.7 % (0.0-4.0); HEMATOCRIT 29.2 % (36-48); HEMOGLOBIN 9.3 g/dL (12.0-16.0); LYMPHOCYTES # (AUTO) 0.7 K/uL (1.0-5.5); LYMPHOCYTES % (AUTO) 8.4 % (20.5-51.5); MEAN CORPUSCULAR HEMOGLOBIN 31 pg (27-31); MEAN CORPUSCULAR HGB CONC 32 % (32-36); MEAN CORPUSCULAR VOLUME 97 fL (79.0-98.0); MONOCYTES # (AUTO) 0.7 K/uL (0.0-1.0); MONOCYTES % (AUTO) 8.8 % (1.7-9.3); NEUTROPHILS # (AUTO) 6.7 K/uL (1.8-7.7); NEUTROPHILS % (AUTO) 80.6 % (40.0-70.0); PLATELET COUNT (AUTO) 131 K/uL (130-430); RED CELL DISTRIBUTION WIDTH 14.7 % (9.0-15.0); WHITE BLOOD COUNT (AUTO) 8.3 K/uL (4.8-10.8)
[2019-06-20 05:38] LABS: CALCIUM 7.9 mg/dL (8.4-11.0); CHLORIDE 104 mmol/L (98-107); CREATININE 0.49 mg/dL (0.55-1.30); GLUCOSE 147 mg/dL (70-99); POTASSIUM 3.8 mmol/L (3.5-5.1); SODIUM SERUM 139 mmol/L (136-145); UREA NITROGEN, BLOOD 13 mg/dL (8-21)
[2019-06-20 05:42] LABS: GFR AFRICAN AMERICAN 163 mL/min (>90)
[2019-06-20 05:43] LABS: ANION GAP < 3 (5-15)
[2019-06-20] MEDS: PANTOPRAZOLE SODIUM 40 MG/VIAL (PROTONIX) IVP SCH (08:07)
[2019-06-20] MEDS: levETIRAcetam 500 MG in NS 100 ML IV SCH ×2 (08:09→20:32)
[2019-06-20] MEDS: LEVOTHYROXINE SODIUM 0.1 MG VIAL IVP SCH (08:10)
[2019-06-20] MEDS: ENOXAPARIN SODIUM 40 MG/0.4 ML SYRINGE SUBCUT SCH (08:10)
[2019-06-20] MEDS: FLUCONAZOLE 100 mg/ NS 50 ML IV SCH (11:59)
[2019-06-20] MEDS: LORazepam 2 MG/ML VIAL IVP PRN ×4 (13:07→23:44)
[2019-06-20] MEDS: PRIMIDONE 50 MG TABLET PO SCH (20:33)
[2019-06-21] VITALS (29 sets, daily range): BP systolic 88–156
[2019-06-21] MEDS: 0.45% NACL 1,000 ML IV SCH (00:40)
[2019-06-21] MEDS: LevALBUTEROL HCL 1.25 MG/0.5 ML *CONC.* VIAL.NEB (XOPENEX CONC.) INH SCH ×2 (01:00→19:48)
[2019-06-21] MEDS: LORazepam 2 MG/ML VIAL IVP PRN ×4 (05:17→20:04)
[2019-06-21] MEDS: METOCLOPRAMIDE HCL 10 MG/2 ML VIAL IVP SCH ×3 (05:18→21:57)
[2019-06-21] MEDS: PIPERACILLIN/TAZO 4.5GM/DEX-IS 100 ML IV SCH ×3 (05:18→21:57)
[2019-06-21] MEDS: LEVOTHYROXINE SODIUM 0.1 MG VIAL IVP SCH (09:04)
[2019-06-21] MEDS: levETIRAcetam 500 MG in NS 100 ML IV SCH (09:04)
[2019-06-21] MEDS: PANTOPRAZOLE SODIUM 40 MG/VIAL (PROTONIX) IVP SCH (09:04)
[2019-06-21] MEDS: PRIMIDONE 50 MG TABLET PO SCH ×2 (09:04→20:02)
[2019-06-21] MEDS: ENOXAPARIN SODIUM 40 MG/0.4 ML SYRINGE SUBCUT SCH (09:05)
[2019-06-21] MEDS: MORPHINE 2 MG/ML INJ. SYRINGE IVP PRN ×3 (09:06→17:17)
[2019-06-21] MEDS: FLUCONAZOLE 100 mg/ NS 50 ML IV SCH (12:10)
[2019-06-21] MEDS: GABAPENTIN 300 MG CAPSULE PO SCH (20:02)
[2019-06-21] MEDS: LINEZOLID 300 ML IV SCH (20:02)
[2019-06-21] MEDS: clonazePAM 0.5 MG TABLET GT SCH (20:03)
[2019-06-21] MEDS ORDERED: LevETIRAcetam 500 MG/5 ML UDC ORAL LIQUID GT SCH (21:00)
[2019-06-22] VITALS (30 sets, daily range): BP systolic 83–121
[2019-06-22] MEDS: LevALBUTEROL HCL 1.25 MG/0.5 ML *CONC.* VIAL.NEB (XOPENEX CONC.) INH SCH ×4 (01:01→19:25)
[2019-06-22] MEDS: 0.45% NACL 1,000 ML IV SCH (01:18)
[2019-06-22 05:51] LABS: BASOPHILS # (AUTO) 0.1 K/uL (0.0-0.2); BASOPHILS % (AUTO) 0.9 % (0.0-2.0); EOSINOPHILS # (AUTO) 0.2 K/uL (0.0-0.4); EOSINOPHILS % (AUTO) 3.1 % (0.0-4.0); HEMATOCRIT 27.1 % (36-48); HEMOGLOBIN 8.7 g/dL (12.0-16.0); LYMPHOCYTES # (AUTO) 0.7 K/uL (1.0-5.5); LYMPHOCYTES % (AUTO) 11.5 % (20.5-51.5); MEAN CORPUSCULAR HEMOGLOBIN 31 pg (27-31); MEAN CORPUSCULAR HGB CONC 32 % (32-36); MEAN CORPUSCULAR VOLUME 97 fL (79.0-98.0); MONOCYTES # (AUTO) 0.6 K/uL (0.0-1.0); MONOCYTES % (AUTO) 9.5 % (1.7-9.3); NEUTROPHILS # (AUTO) 4.6 K/uL (1.8-7.7); PLATELET COUNT (AUTO) 134 K/uL (130-430); WHITE BLOOD COUNT (AUTO) 6.2 K/uL (4.8-10.8)
[2019-06-22] MEDS: METOCLOPRAMIDE HCL 10 MG/2 ML VIAL IVP SCH (05:54)
[2019-06-22] MEDS: PIPERACILLIN/TAZO 4.5GM/DEX-IS 100 ML IV SCH ×3 (05:55→22:44)
[2019-06-22] MEDS: LEVOTHYROXINE SODIUM 0.075 MG TABLET PO SCH (06:04)
[2019-06-22 06:13] LABS: ALBUMIN 1.7 g/dL (3.4-4.8); CALCIUM 7.7 mg/dL (8.4-11.0); CREATININE 0.4 mg/dL (0.55-1.30); POTASSIUM 3.4 mmol/L (3.5-5.1); TOTAL BILIRUBIN 0.2 mg/dL (0.0-1.0)
[2019-06-22] MEDS: LINEZOLID 300 ML IV SCH ×2 (08:05→20:35)
[2019-06-22] MEDS: GABAPENTIN 300 MG CAPSULE PO SCH ×3 (08:05→20:34)
[2019-06-22] MEDS: PANTOPRAZOLE SODIUM 40 MG TAB GT SCH (08:06)
[2019-06-22] MEDS: PRIMIDONE 50 MG TABLET PO SCH ×2 (08:06→20:35)
[2019-06-22] MEDS: clonazePAM 0.5 MG TABLET GT SCH ×2 (08:06→20:35)
[2019-06-22] MEDS: ENOXAPARIN SODIUM 40 MG/0.4 ML SYRINGE SUBCUT SCH (08:07)
[2019-06-22] MEDS: MORPHINE 2 MG/ML INJ. SYRINGE IVP PRN ×3 (08:26→20:34)
[2019-06-22] MEDS: NACL 0.9% 1,000 ML IV SCH ×2 (09:15→23:43)
[2019-06-22] MEDS: FLUCONAZOLE 100 mg/ NS 50 ML IV SCH (11:30)
[2019-06-22] MEDS ORDERED: POTASSIUM CHLORIDE 20 MEQ/PKT PACKET PO ONE (13:00)
[2019-06-22] MEDS: LORazepam 2 MG/ML VIAL IVP PRN ×3 (14:01→22:03)
[2019-06-23] VITALS (29 sets, daily range): BP systolic 90–131
[2019-06-23] MEDS: LevALBUTEROL HCL 1.25 MG/0.5 ML *CONC.* VIAL.NEB (XOPENEX CONC.) INH SCH ×4 (02:15→19:57)
[2019-06-23] MEDS: MORPHINE 2 MG/ML INJ. SYRINGE IVP PRN ×3 (05:16→11:35)
[2019-06-23] MEDS: PIPERACILLIN/TAZO 4.5GM/DEX-IS 100 ML IV SCH (05:16)
[2019-06-23 05:59] LABS: BASOPHILS # (AUTO) 0.1 K/uL (0.0-0.2); BASOPHILS % (AUTO) 0.9 % (0.0-2.0); EOSINOPHILS # (AUTO) 0.3 K/uL (0.0-0.4); HEMATOCRIT 27.2 % (36-48); HEMOGLOBIN 8.8 g/dL (12.0-16.0); LYMPHOCYTES # (AUTO) 0.9 K/uL (1.0-5.5); LYMPHOCYTES % (AUTO) 13.5 % (20.5-51.5); MEAN CORPUSCULAR HEMOGLOBIN 31 pg (27-31); MEAN CORPUSCULAR HGB CONC 32 % (32-36); MEAN CORPUSCULAR VOLUME 96 fL (79.0-98.0); MONOCYTES # (AUTO) 0.5 K/uL (0.0-1.0); MONOCYTES % (AUTO) 8.1 % (1.7-9.3); NEUTROPHILS # (AUTO) 4.8 K/uL (1.8-7.7); NEUTROPHILS % (AUTO) 73.5 % (40.0-70.0); PLATELET COUNT (AUTO) 153 K/uL (130-430); RED BLOOD CELL COUNT(AUTO) 2.83 MIL/uL (4.2-6.2); RED CELL DISTRIBUTION WIDTH 14.8 % (9.0-15.0); WHITE BLOOD COUNT (AUTO) 6.6 K/uL (4.8-10.8)
[2019-06-23] MEDS: LEVOTHYROXINE SODIUM 0.075 MG TABLET PO SCH (06:25)
[2019-06-23 06:28] LABS: ALANINE AMINOTRANSFERASE 21 U/L (12-78); ALBUMIN 1.7 g/dL (3.4-4.8); ASPARTATE AMINOTRANSFERASE 23 U/L (10-37); CALCIUM 7.5 mg/dL (8.4-11.0); CHLORIDE 100 mmol/L (98-107); CREATININE 0.37 mg/dL (0.55-1.30); GLUCOSE 113 mg/dL (70-99); SODIUM SERUM 137 mmol/L (136-145); TOTAL BILIRUBIN 0.3 mg/dL (0.0-1.0); UREA NITROGEN, BLOOD 12 mg/dL (8-21)
[2019-06-23 07:17] LABS: ANION GAP < 3 (5-15); GFR AFRICAN AMERICAN 225 mL/min (>90)
[2019-06-23] MEDS: LINEZOLID 300 ML IV SCH ×2 (08:06→21:07)
[2019-06-23] MEDS: LORazepam 2 MG/ML VIAL IVP PRN ×4 (08:07→23:01)
[2019-06-23] MEDS: GABAPENTIN 300 MG CAPSULE PO SCH ×3 (08:07→21:07)
[2019-06-23] MEDS: PANTOPRAZOLE SODIUM 40 MG TAB GT SCH (08:07)
[2019-06-23] MEDS: clonazePAM 0.5 MG TABLET GT SCH ×2 (08:07→21:07)
[2019-06-23] MEDS: ENOXAPARIN SODIUM 40 MG/0.4 ML SYRINGE SUBCUT SCH (08:09)
[2019-06-23] MEDS: PRIMIDONE 50 MG TABLET PO SCH ×2 (08:42→21:07)
[2019-06-23] MEDS: FLUCONAZOLE 100 mg/ NS 50 ML IV SCH (11:35)
[2019-06-23] MEDS: INSULIN REGULAR, HUMAN 100 UNITS/ML, 10 ML VIAL (humuLIN R) SUBCUT PRN (11:39)
[2019-06-23] MEDS: CEFEPIME 1 GM in D5W 50 ML IV SCH (13:31)
[2019-06-23] MEDS: NACL 0.9% 1,000 ML IV SCH (15:06)
[2019-06-23] MEDS: MORPHINE 4 MG/ML INJ. SYRINGE IVP PRN ×2 (15:06→21:27)
[2019-06-24] VITALS (33 sets, daily range): BP systolic 103–138
[2019-06-24] MEDS: CEFEPIME 1 GM in D5W 50 ML IV SCH ×2 (00:40→12:19)
[2019-06-24] MEDS: LevALBUTEROL HCL 1.25 MG/0.5 ML *CONC.* VIAL.NEB (XOPENEX CONC.) INH SCH ×4 (01:41→19:47)
[2019-06-24] MEDS: MORPHINE 4 MG/ML INJ. SYRINGE IVP PRN ×6 (02:56→21:37)
[2019-06-24 07:14] LABS: BASOPHILS # (AUTO) 0.1 K/uL (0.0-0.2); BASOPHILS % (AUTO) 0.9 % (0.0-2.0); EOSINOPHILS # (AUTO) 0.4 K/uL (0.0-0.4); EOSINOPHILS % (AUTO) 4.8 % (0.0-4.0); HEMATOCRIT 28.2 % (36-48); HEMOGLOBIN 9.2 g/dL (12.0-16.0); LYMPHOCYTES # (AUTO) 1.3 K/uL (1.0-5.5); LYMPHOCYTES % (AUTO) 16.9 % (20.5-51.5); MEAN CORPUSCULAR HEMOGLOBIN 32 pg (27-31); MEAN CORPUSCULAR HGB CONC 33 % (32-36); MEAN CORPUSCULAR VOLUME 96 fL (79.0-98.0); MONOCYTES # (AUTO) 0.6 K/uL (0.0-1.0); MONOCYTES % (AUTO) 7.5 % (1.7-9.3); NEUTROPHILS # (AUTO) 5.3 K/uL (1.8-7.7); NEUTROPHILS % (AUTO) 69.9 % (40.0-70.0); PLATELET COUNT (AUTO) 163 K/uL (130-430); RED BLOOD CELL COUNT(AUTO) 2.93 MIL/uL (4.2-6.2); WHITE BLOOD COUNT (AUTO) 7.6 K/uL (4.8-10.8)
[2019-06-24] MEDS: LEVOTHYROXINE SODIUM 0.075 MG TABLET PO SCH (07:15)
[2019-06-24 07:33] LABS: CALCIUM 7.7 mg/dL (8.4-11.0); CREATININE 0.34 mg/dL (0.55-1.30); POTASSIUM 4.1 mmol/L (3.5-5.1)
[2019-06-24] MEDS: LINEZOLID 300 ML IV SCH ×2 (08:31→21:39)
[2019-06-24] MEDS: PRIMIDONE 50 MG TABLET PO SCH ×2 (08:32→21:40)
[2019-06-24] MEDS: PANTOPRAZOLE SODIUM 40 MG TAB GT SCH (08:32)
[2019-06-24] MEDS: GABAPENTIN 300 MG CAPSULE PO SCH ×3 (08:32→21:41)
[2019-06-24] MEDS: clonazePAM 0.5 MG TABLET GT SCH ×2 (08:32→21:41)
[2019-06-24] MEDS: ENOXAPARIN SODIUM 40 MG/0.4 ML SYRINGE SUBCUT SCH (08:34)
[2019-06-24] MEDS ORDERED: FUROSEMIDE 20 MG/2 ML VIAL IVP ONE (09:45)
[2019-06-24] MEDS: INSULIN REGULAR, HUMAN 100 UNITS/ML, 10 ML VIAL (humuLIN R) SUBCUT PRN ×2 (12:16→17:04)
[2019-06-24] MEDS: NACL 0.9% 1,000 ML IV SCH (14:13)
[2019-06-24] MEDS: LORazepam 2 MG/ML VIAL IVP PRN ×2 (16:39→20:15)
[2019-06-24] MEDS: ONDANSETRON HCL 4 MG/2 ML VIAL IVP PRN (21:37)
[2019-06-25] VITALS (25 sets, daily range): BP systolic 90–136
[2019-06-25] MEDS: LORazepam 2 MG/ML VIAL IVP PRN ×10 (00:18→22:24)
[2019-06-25] MEDS: D5/0.45 NS 1,000 ML IV SCH ×3 (00:28→20:00)
[2019-06-25] MEDS: CEFEPIME 1 GM in D5W 50 ML IV SCH ×2 (01:00→12:13)
[2019-06-25] MEDS: LevALBUTEROL HCL 1.25 MG/0.5 ML *CONC.* VIAL.NEB (XOPENEX CONC.) INH SCH ×4 (01:04→19:29)
[2019-06-25 06:14] LABS: BASOPHILS % (AUTO) 0.8 % (0.0-2.0); EOSINOPHILS # (AUTO) 0.4 K/uL (0.0-0.4); EOSINOPHILS % (AUTO) 7.1 % (0.0-4.0); HEMATOCRIT 26.9 % (36-48); HEMOGLOBIN 8.6 g/dL (12.0-16.0); LYMPHOCYTES # (AUTO) 1.1 K/uL (1.0-5.5); MEAN CORPUSCULAR HEMOGLOBIN 31 pg (27-31); MEAN CORPUSCULAR HGB CONC 32 % (32-36); MEAN CORPUSCULAR VOLUME 97 fL (79.0-98.0); MONOCYTES # (AUTO) 0.4 K/uL (0.0-1.0); MONOCYTES % (AUTO) 7.5 % (1.7-9.3); NEUTROPHILS # (AUTO) 3.9 K/uL (1.8-7.7); NEUTROPHILS % (AUTO) 66.6 % (40.0-70.0); PLATELET COUNT (AUTO) 143 K/uL (130-430); RED BLOOD CELL COUNT(AUTO) 2.76 MIL/uL (4.2-6.2); RED CELL DISTRIBUTION WIDTH 15.7 % (9.0-15.0); WHITE BLOOD COUNT (AUTO) 5.9 K/uL (4.8-10.8)
[2019-06-25 06:38] LABS: ALBUMIN 1.7 g/dL (3.4-4.8); CALCIUM 7.8 mg/dL (8.4-11.0); CREATININE 0.39 mg/dL (0.55-1.30); POTASSIUM 3.7 mmol/L (3.5-5.1); TOTAL BILIRUBIN 0.3 mg/dL (0.0-1.0)
[2019-06-25 06:56] LABS: INR 1.1 (0.8-1.2); PROTHROMBIN TIME 11.4 SECS (9.5-12.5)
[2019-06-25] MEDS: LEVOTHYROXINE SODIUM 0.075 MG TABLET PO SCH (07:00)
[2019-06-25] MEDS: PANTOPRAZOLE SODIUM 40 MG TAB GT SCH (08:17)
[2019-06-25] MEDS: clonazePAM 0.5 MG TABLET GT SCH ×2 (08:17→21:00)
[2019-06-25] MEDS: LINEZOLID 300 ML IV SCH ×2 (08:17→22:16)
[2019-06-25] MEDS: GABAPENTIN 300 MG CAPSULE PO SCH ×3 (08:18→21:00)
[2019-06-25] MEDS: PRIMIDONE 50 MG TABLET PO SCH ×2 (08:18→21:00)
[2019-06-25] MEDS: ENOXAPARIN SODIUM 40 MG/0.4 ML SYRINGE SUBCUT SCH (08:22)
[2019-06-25] MEDS: INSULIN REGULAR, HUMAN 100 UNITS/ML, 10 ML VIAL (humuLIN R) SUBCUT PRN ×2 (11:05→16:50)
[2019-06-25] MEDS: MORPHINE 4 MG/ML INJ. SYRINGE IVP PRN ×2 (15:09→21:45)
[2019-06-25] MEDS: NACL 0.9% 1,000 ML IV SCH (16:49)
[2019-06-25] MEDS ORDERED: fentaNYL CITRATE/PF 100 MCG/2 ML AMP IVP PRN ×2 (17:00)
[2019-06-25] MEDS: LevALBUTEROL HCL 1.25 MG/0.5 ML *CONC.* VIAL.NEB (XOPENEX CONC.) INH PRN (21:30)
[2019-06-26] VITALS (25 sets, daily range): BP systolic 106–155
[2019-06-26] MEDS: MORPHINE 4 MG/ML INJ. SYRINGE IVP PRN ×6 (00:46→22:34)
[2019-06-26] MEDS: CEFEPIME 1 GM in D5W 50 ML IV SCH ×2 (00:52→13:38)
[2019-06-26] MEDS: LevALBUTEROL HCL 1.25 MG/0.5 ML *CONC.* VIAL.NEB (XOPENEX CONC.) INH SCH ×4 (00:57→19:09)
[2019-06-26] MEDS: LORazepam 2 MG/ML VIAL IVP PRN ×6 (02:35→22:34)
[2019-06-26] MEDS ORDERED: LORazepam 2 MG/ML VIAL ONE (02:47)
[2019-06-26 05:58] LABS: BASOPHILS % (AUTO) 0.5 % (0.0-2.0); EOSINOPHILS # (AUTO) 0.4 K/uL (0.0-0.4); EOSINOPHILS % (AUTO) 5.1 % (0.0-4.0); HEMATOCRIT 27.5 % (36-48); LYMPHOCYTES % (AUTO) 14.5 % (20.5-51.5); MEAN CORPUSCULAR HEMOGLOBIN 32 pg (27-31); MEAN CORPUSCULAR HGB CONC 33 % (32-36); MEAN CORPUSCULAR VOLUME 96 fL (79.0-98.0); MONOCYTES # (AUTO) 0.5 K/uL (0.0-1.0); MONOCYTES % (AUTO) 6.6 % (1.7-9.3); NEUTROPHILS # (AUTO) 5.1 K/uL (1.8-7.7); NEUTROPHILS % (AUTO) 73.3 % (40.0-70.0); PLATELET COUNT (AUTO) 154 K/uL (130-430); RED BLOOD CELL COUNT(AUTO) 2.86 MIL/uL (4.2-6.2); RED CELL DISTRIBUTION WIDTH 15.8 % (9.0-15.0); WHITE BLOOD COUNT (AUTO) 6.9 K/uL (4.8-10.8)
[2019-06-26 06:21] LABS: ALANINE AMINOTRANSFERASE 14 U/L (12-78); ALBUMIN 1.7 g/dL (3.4-4.8); ASPARTATE AMINOTRANSFERASE 16 U/L (10-37); CHLORIDE 94 mmol/L (98-107); GLUCOSE 127 mg/dL (70-99); POTASSIUM 3.2 mmol/L (3.5-5.1); SODIUM SERUM 128 mmol/L (136-145); TOTAL BILIRUBIN 0.3 mg/dL (0.0-1.0); UREA NITROGEN, BLOOD 6 mg/dL (8-21)
[2019-06-26] MEDS: LEVOTHYROXINE SODIUM 0.075 MG TABLET PO SCH (06:49)
[2019-06-26 06:50] LABS: ANION GAP < 3 (5-15); GFR AFRICAN AMERICAN 287 mL/min (>90)
[2019-06-26] MEDS: D5/0.45 NS 1,000 ML IV SCH (06:50)
[2019-06-26] MEDS ORDERED: SEVOFLURANE 15 MIN GAS INH ONE (08:45)
[2019-06-26] MEDS ORDERED: NS IRRIG SOLN 1000 ML IR ONE (08:45)
[2019-06-26] MEDS ORDERED: NS 1000 ML IV.SOLN IV ONE (08:45)
[2019-06-26] MEDS ORDERED: ROCURONIUM BROMIDE 10 MG/ML (ZEMURON) ONE (08:45)
[2019-06-26] MEDS ORDERED: PROPOFOL 200MG/ 20ML VIAL (DIPRIVAN) IV ONE (08:45)
[2019-06-26] MEDS ORDERED: MIDAZOLAM HCL 5 MG/ML VIAL (VERSED) IV ONE (08:45)
[2019-06-26] MEDS ORDERED: ONDANSETRON HCL 4 MG/2 ML VIAL ONE (08:45)
[2019-06-26] MEDS: PANTOPRAZOLE SODIUM 40 MG TAB GT SCH (09:44)
[2019-06-26] MEDS: LINEZOLID 300 ML IV SCH ×2 (09:44→21:41)
[2019-06-26] MEDS: clonazePAM 0.5 MG TABLET GT SCH ×2 (09:45→21:42)
[2019-06-26] MEDS: PRIMIDONE 50 MG TABLET PO SCH ×2 (09:45→21:42)
[2019-06-26] MEDS: GABAPENTIN 300 MG CAPSULE PO SCH ×3 (09:45→21:42)
[2019-06-26] MEDS: ENOXAPARIN SODIUM 40 MG/0.4 ML SYRINGE SUBCUT SCH (09:46)
[2019-06-26] MEDS ORDERED: POTASSIUM CHLORIDE 20 MEQ TAB.PRT.SR GT SCH (10:45)
[2019-06-26] MEDS ORDERED: POTASSIUM CHLORIDE 20 MEQ/PKT PACKET GT SCH (11:00)
[2019-06-26] MEDS: NACL 0.9% 1,000 ML IV SCH (11:41)
[2019-06-26] MEDS: INSULIN REGULAR, HUMAN 100 UNITS/ML, 10 ML VIAL (humuLIN R) SUBCUT PRN (11:45)
[2019-06-27] VITALS (28 sets, daily range): BP systolic 105–148
[2019-06-27] MEDS: CEFEPIME 1 GM in D5W 50 ML IV SCH ×2 (00:38→12:24)
[2019-06-27] MEDS: INSULIN REGULAR, HUMAN 100 UNITS/ML, 10 ML VIAL (humuLIN R) SUBCUT PRN (00:51)
[2019-06-27] MEDS: LevALBUTEROL HCL 1.25 MG/0.5 ML *CONC.* VIAL.NEB (XOPENEX CONC.) INH SCH ×2 (01:06→22:11)
[2019-06-27] MEDS: LORazepam 2 MG/ML VIAL IVP PRN ×10 (03:54→23:00)
[2019-06-27] MEDS: MORPHINE 4 MG/ML INJ. SYRINGE IVP PRN ×2 (03:55→11:41)
[2019-06-27 05:48] LABS: BASOPHILS % (AUTO) 0.7 % (0.0-2.0); EOSINOPHILS # (AUTO) 0.4 K/uL (0.0-0.4); EOSINOPHILS % (AUTO) 5.7 % (0.0-4.0); HEMATOCRIT 29.1 % (36-48); HEMOGLOBIN 9.5 g/dL (12.0-16.0); LYMPHOCYTES # (AUTO) 0.9 K/uL (1.0-5.5); LYMPHOCYTES % (AUTO) 12.6 % (20.5-51.5); MEAN CORPUSCULAR HEMOGLOBIN 32 pg (27-31); MEAN CORPUSCULAR HGB CONC 33 % (32-36); MEAN CORPUSCULAR VOLUME 97 fL (79.0-98.0); MONOCYTES # (AUTO) 0.6 K/uL (0.0-1.0); PLATELET COUNT (AUTO) 150 K/uL (130-430); RED BLOOD CELL COUNT(AUTO) 2.99 MIL/uL (4.2-6.2); RED CELL DISTRIBUTION WIDTH 16.5 % (9.0-15.0); WHITE BLOOD COUNT (AUTO) 6.9 K/uL (4.8-10.8)
[2019-06-27 06:01] LABS: CREATININE 0.33 mg/dL (0.55-1.30); POTASSIUM 3.7 mmol/L (3.5-5.1)
[2019-06-27] MEDS: LEVOTHYROXINE SODIUM 0.075 MG TABLET PO SCH (06:02)
[2019-06-27] MEDS: PANTOPRAZOLE SODIUM 40 MG TAB GT SCH (08:10)
[2019-06-27] MEDS: LINEZOLID 300 ML IV SCH ×2 (08:10→21:46)
[2019-06-27] MEDS: clonazePAM 0.5 MG TABLET GT SCH ×2 (08:10→21:47)
[2019-06-27] MEDS: GABAPENTIN 300 MG CAPSULE PO SCH ×3 (08:11→21:47)
[2019-06-27] MEDS: PRIMIDONE 50 MG TABLET PO SCH ×2 (08:11→21:46)
[2019-06-27] MEDS: ENOXAPARIN SODIUM 40 MG/0.4 ML SYRINGE SUBCUT SCH (08:12)
[2019-06-27] MEDS: BALSAM PERU/CASTOR OIL 60 GM OINT...G. TP SCH (09:00)
[2019-06-27] MEDS: NACL 0.9% 1,000 ML IV SCH (15:50)
[2019-06-27] MEDS: MORPHINE 2 MG/ML INJ. SYRINGE IVP PRN ×3 (16:51→22:58)
[2019-06-28] VITALS (31 sets, daily range): BP systolic 106–178
[2019-06-28] MEDS: CEFEPIME 1 GM in D5W 50 ML IV SCH ×2 (00:47→12:00)
[2019-06-28] MEDS: LORazepam 2 MG/ML VIAL IVP PRN ×9 (03:41→22:28)
[2019-06-28] MEDS: MORPHINE 2 MG/ML INJ. SYRINGE IVP PRN ×8 (03:41→22:29)
[2019-06-28 05:44] LABS: BASOPHILS % (AUTO) 0.4 % (0.0-2.0); EOSINOPHILS # (AUTO) 0.3 K/uL (0.0-0.4); EOSINOPHILS % (AUTO) 4.5 % (0.0-4.0); HEMATOCRIT 27.9 % (36-48); HEMOGLOBIN 9.2 g/dL (12.0-16.0); LYMPHOCYTES # (AUTO) 0.9 K/uL (1.0-5.5); LYMPHOCYTES % (AUTO) 12.6 % (20.5-51.5); MEAN CORPUSCULAR HEMOGLOBIN 32 pg (27-31); MEAN CORPUSCULAR HGB CONC 33 % (32-36); MEAN CORPUSCULAR VOLUME 97 fL (79.0-98.0); MONOCYTES # (AUTO) 0.6 K/uL (0.0-1.0); MONOCYTES % (AUTO) 8.6 % (1.7-9.3); NEUTROPHILS # (AUTO) 5.1 K/uL (1.8-7.7); NEUTROPHILS % (AUTO) 73.9 % (40.0-70.0); PLATELET COUNT (AUTO) 151 K/uL (130-430); RED BLOOD CELL COUNT(AUTO) 2.89 MIL/uL (4.2-6.2); RED CELL DISTRIBUTION WIDTH 16.1 % (9.0-15.0)
[2019-06-28 06:02] LABS: CALCIUM 7.5 mg/dL (8.4-11.0); CREATININE 0.42 mg/dL (0.55-1.30); POTASSIUM 3.7 mmol/L (3.5-5.1)
[2019-06-28] MEDS: LEVOTHYROXINE SODIUM 0.075 MG TABLET PO SCH (06:15)
[2019-06-28] MEDS: LevALBUTEROL HCL 1.25 MG/0.5 ML *CONC.* VIAL.NEB (XOPENEX CONC.) INH SCH ×3 (08:22→19:44)
[2019-06-28] MEDS: PANTOPRAZOLE SODIUM 40 MG TAB GT SCH (08:37)
[2019-06-28] MEDS: clonazePAM 0.5 MG TABLET GT SCH ×2 (08:37→22:30)
[2019-06-28] MEDS: GABAPENTIN 300 MG CAPSULE PO SCH ×3 (08:37→22:31)
[2019-06-28] MEDS: PRIMIDONE 50 MG TABLET PO SCH ×2 (08:37→22:30)
[2019-06-28] MEDS: ENOXAPARIN SODIUM 40 MG/0.4 ML SYRINGE SUBCUT SCH (08:37)
[2019-06-28] MEDS: BALSAM PERU/CASTOR OIL 60 GM OINT...G. TP SCH (08:38)
[2019-06-28] MEDS: LINEZOLID 300 ML IV SCH ×2 (08:38→22:32)
[2019-06-28] MEDS: NACL 0.9% 1,000 ML IV SCH (15:03)
[2019-06-28] MEDS: INSULIN REGULAR, HUMAN 100 UNITS/ML, 10 ML VIAL (humuLIN R) SUBCUT PRN (18:13)
[2019-06-28] MEDS: metroNIDAZOLE 500 mg/NS 100 ML IV SCH (22:31)
[2019-06-29] VITALS (28 sets, daily range): BP systolic 113–150
[2019-06-29] MEDS: LORazepam 2 MG/ML VIAL IVP PRN ×10 (00:13→23:56)
[2019-06-29] MEDS: MORPHINE 2 MG/ML INJ. SYRINGE IVP PRN ×8 (00:14→23:57)
[2019-06-29] MEDS: CEFEPIME 1 GM in D5W 50 ML IV SCH ×2 (01:57→12:30)
[2019-06-29] MEDS: LevALBUTEROL HCL 1.25 MG/0.5 ML *CONC.* VIAL.NEB (XOPENEX CONC.) INH SCH ×4 (02:17→20:02)
[2019-06-29] MEDS: LEVOTHYROXINE SODIUM 0.075 MG TABLET PO SCH (06:36)
[2019-06-29] MEDS: clonazePAM 0.5 MG TABLET GT SCH ×2 (08:18→20:37)
[2019-06-29] MEDS: BALSAM PERU/CASTOR OIL 60 GM OINT...G. TP SCH (08:19)
[2019-06-29] MEDS: PRIMIDONE 50 MG TABLET PO SCH ×2 (08:19→20:38)
[2019-06-29] MEDS: PANTOPRAZOLE SODIUM 40 MG TAB GT SCH (08:19)
[2019-06-29] MEDS: GABAPENTIN 300 MG CAPSULE PO SCH ×3 (08:19→20:38)
[2019-06-29] MEDS: metroNIDAZOLE 500 mg/NS 100 ML IV SCH ×2 (08:20→20:38)
[2019-06-29] MEDS: ENOXAPARIN SODIUM 40 MG/0.4 ML SYRINGE SUBCUT SCH (08:21)
[2019-06-29] MEDS: LINEZOLID 300 ML IV SCH ×2 (10:12→20:38)
[2019-06-29] MEDS: NACL 0.9% 1,000 ML IV SCH (15:30)
[2019-06-30] VITALS (25 sets, daily range): BP systolic 115–146
[2019-06-30] MEDS: CEFEPIME 1 GM in D5W 50 ML IV SCH ×2 (00:30→12:07)
[2019-06-30] MEDS: LORazepam 2 MG/ML VIAL IVP PRN ×7 (01:29→19:17)
[2019-06-30] MEDS: MORPHINE 2 MG/ML INJ. SYRINGE IVP PRN ×7 (01:31→19:18)
[2019-06-30 05:24] LABS: BASOPHILS % (AUTO) 0.6 % (0.0-2.0); EOSINOPHILS # (AUTO) 0.4 K/uL (0.0-0.4); EOSINOPHILS % (AUTO) 7.4 % (0.0-4.0); HEMATOCRIT 27.3 % (36-48); LYMPHOCYTES # (AUTO) 0.9 K/uL (1.0-5.5); LYMPHOCYTES % (AUTO) 16.9 % (20.5-51.5); MEAN CORPUSCULAR HEMOGLOBIN 32 pg (27-31); MEAN CORPUSCULAR HGB CONC 33 % (32-36); MEAN CORPUSCULAR VOLUME 97 fL (79.0-98.0); MONOCYTES # (AUTO) 0.5 K/uL (0.0-1.0); MONOCYTES % (AUTO) 9.7 % (1.7-9.3); NEUTROPHILS # (AUTO) 3.6 K/uL (1.8-7.7); NEUTROPHILS % (AUTO) 65.4 % (40.0-70.0); PLATELET COUNT (AUTO) 138 K/uL (130-430); RED BLOOD CELL COUNT(AUTO) 2.83 MIL/uL (4.2-6.2); RED CELL DISTRIBUTION WIDTH 16.7 % (9.0-15.0); WHITE BLOOD COUNT (AUTO) 5.5 K/uL (4.8-10.8)
[2019-06-30 05:35] LABS: CALCIUM 7.7 mg/dL (8.4-11.0); CREATININE 0.36 mg/dL (0.55-1.30); POTASSIUM 3.6 mmol/L (3.5-5.1)
[2019-06-30] MEDS: LEVOTHYROXINE SODIUM 0.075 MG TABLET PO SCH (06:03)
[2019-06-30] MEDS: LevALBUTEROL HCL 1.25 MG/0.5 ML *CONC.* VIAL.NEB (XOPENEX CONC.) INH SCH ×2 (07:31→13:22)
[2019-06-30] MEDS: LINEZOLID 300 ML IV SCH (08:11)
[2019-06-30] MEDS: PANTOPRAZOLE SODIUM 40 MG TAB GT SCH (08:11)
[2019-06-30] MEDS: metroNIDAZOLE 500 mg/NS 100 ML IV SCH (08:11)
[2019-06-30] MEDS: PRIMIDONE 50 MG TABLET PO SCH (08:12)
[2019-06-30] MEDS: clonazePAM 0.5 MG TABLET GT SCH (08:12)
[2019-06-30] MEDS: GABAPENTIN 300 MG CAPSULE PO SCH ×2 (08:12→13:57)
[2019-06-30] MEDS: BALSAM PERU/CASTOR OIL 60 GM OINT...G. TP SCH (08:13)
[2019-06-30] MEDS: ENOXAPARIN SODIUM 40 MG/0.4 ML SYRINGE SUBCUT SCH (08:14)
[2019-06-30] MEDS ORDERED: DIPHENOXYLATE HCL/ATROP SULF 2.5 MG TAB PO PRN (10:15)
[2019-06-30] MEDS: NACL 0.9% 1,000 ML IV SCH (15:27)
== END 2019-06-30 19:45 | DRG 4 ==
LOC: SED 17:52 → STU 22:03 → SIC 06-11 12:06
PROVIDERS: ADMIT Family Medicine; ATTEND Family Medicine
PROC: 0BH17EZ Insertion of Endotracheal Airway into Trachea, Via Natural or Artificial Opening (ICD-10-PCS; 2019-06-12)
PROC: 0DJ08ZZ Inspection of Upper Intestinal Tract, Via Natural or Artificial Opening Endoscopic (ICD-10-PCS; 2019-06-12)
PROC: 5A1955Z Respiratory Ventilation, Greater than 96 Consecutive Hours (ICD-10-PCS; principal; 2019-06-12 09:00)
PROC: 0DH63UZ Insertion of Feeding Device into Stomach, Percutaneous Approach (ICD-10-PCS; 2019-06-15)
PROC: 02HV33Z Insertion of Infusion Device into Superior Vena Cava, Percutaneous Approach (ICD-10-PCS; 2019-06-23)
PROC: B548ZZA Ultrasonography of Superior Vena Cava, Guidance (ICD-10-PCS; 2019-06-23)
PROC: 0B110F4 Bypass Trachea to Cutaneous with Tracheostomy Device, Open Approach (ICD-10-PCS; 2019-06-26)
DX: J69.0 Pneumonitis due to inhalation of food and vomit (principal); E43 Unspecified severe protein-calorie malnutrition; J96.01 Acute respiratory failure with hypoxia; G93.41 Metabolic encephalopathy; J96.02 Acute respiratory failure with hypercapnia; I24.8 Other forms of acute ischemic heart disease; Z99.11 Dependence on respirator [ventilator] status; M62.82 Rhabdomyolysis; N39.0 Urinary tract infection, site not specified; N17.9 Acute kidney failure, unspecified; Z68.1 Body mass index [BMI] 19.9 or less, adult; E87.1 Hypo-osmolality and hyponatremia; E03.9 Hypothyroidism, unspecified; E86.0 Dehydration; E87.6 Hypokalemia; F03.90 Unspecified dementia, unspecified severity, without behavioral disturbance, psychotic disturbance, mood disturbance, and anxiety; F41.9 Anxiety disorder, unspecified; G40.909 Epilepsy, unspecified, not intractable, without status epilepticus; K29.70 Gastritis, unspecified, without bleeding; K31.9 Disease of stomach and duodenum, unspecified; K44.9 Diaphragmatic hernia without obstruction or gangrene; R13.12 Dysphagia, oropharyngeal phase; R62.7 Adult failure to thrive; Z85.858 Personal history of malignant neoplasm of other endocrine glands; Z87.891 Personal history of nicotine dependence; M19.90 Unspecified osteoarthritis, unspecified site; M21.371 Foot drop, right foot; M21.372 Foot drop, left foot; Z74.01 Bed confinement status; Z85.841 Personal history of malignant neoplasm of brain; Z79.899 Other long term (current) drug therapy
CPT/HCPCS: 36415; 36600; 43235; 43246; 70450-TC; 71045; 74230; 80048; 80053; 81000-TC; 82272; 82550-TC; 82553-TC; 82803-TC; 82962; 83605; 83735-TC; 83880; 84100-TC; 84134; 84443-TC; 84478-TC; 84484; 85025; 85610-TC; 85651-TC; 85730-TC; 86738; 87040-TC; 87045-TC; 87046; 87070-TC; 87081; 87086; 87205-TC; 92610-GN; 92611-GN; 93005; 93306; 94002; 94003; 94640; 94760; 96361; 96372; 99285; C1751; C9113; G0378; J0456; J0690; J0692; J0696; J1120; J1450; J1650; J1815; J1940; J1953; J1956; J2020; J2060; J2250; J2270; J2405; J2543; J2704; J2765; J3010; J3475; J3480; J3490; J7030; J7050; J7060; J7131; J7612; P9046